=== PATIENT | male | born 1990 | race Caucasian/White ===

== ENCOUNTER 2018-07-31 02:21 | Emergency (ER) | payer SELFPAY ==
[~2018-07-31] VITALS: Wt 84.4 kg
--- NOTE | 2018-07-31 03:14 | ERD ---
ER Documentation Chief Complaint Chief Complaint SINUS CONGESTION, ITCHING IN BACK OF THROAT HPI 28-year-old male, presents the emergency department, complaining of frontal headache, associated with runny nose, nasal congestion and itchy throat. The patient denies fevers, no chills, no shortness of breath, no rashes. No medications taken at this time for the symptoms ROS All systems reviewed and are negative except as per history of present illness. Medications Home Meds Active Scripts Cetirizine Hcl* (Zyrtec*) 10 Mg Capsule, 10 MG PO DAILY, #30 TAB.CHEW Prov:VIKTORIYA MARTINEZ MD 07/31/18 Prednisone* (Prednisone*) 20 Mg Tab, 40 MG PO DAILY for 5 Days, TAB Prov:VIKTORIYA MARTINEZ MD 07/31/18 Fluticasone Propionate* (Fluticasone Propionate* Nasal) 50 Mcg/[place] - 16 Gm [place].susp, 1 SPRAY NASAL BID, #1 BOTTLE TO EACH NOSTRIL Prov:VIKTORIYA MARTINEZ MD 07/31/18 PMhx/Soc Medical and Surgical Hx: pt denies Medical Hx, pt denies Surgical Hx Hx Alcohol Use: No Hx Substance Use: No Hx Tobacco Use: No Smoking Status: Never smoker FmHx Family History: No diabetes, No coronary disease Physical Exam Vitals Vital Signs Date Temp Pulse Resp B/P (MAP) Pulse Ox O2 O2 Flow FiO2 Time Delivery Rate 07/31/18 98.4 78 16 132/84 99 Room Air 04:48 (100) 07/31/18 97.1 68 18 148/88 100 02:27 (108) Physical Exam Patient alert, oriented, vital signs stable. HEAD: Normocephalic, atraumatic. EYES: PERRLA, EOMI, Sclera and conjunctiva appear normal. NOSE: Bulging nasal mucosa with clear rhinorrhea EARS: Canals clear, tympanic membranes WNL. MOUTH: normal lips and tongue, no oral lesions. THROAT: Erythematous oropharynx, no tonsillar exudates. NECK: Supple, No lymphadenopathy. Full ROM without pain or tenderness. HEART: RRR, no rubs, murmurs, clicks or gallops. LUNGS: Clear to auscultation. ABDOMEN: Soft, non-tender without masses or hepatosplenomegaly. EXTREMITIES: No edema bilaterally. BACK: Full ROM, no deformity, normal back exam NEURO: Cranial nerves grossly intact, no motor or sensory deficit SKIN: No rashes, no petechia. Procedures/MDM Vital signs stable, differential diagnosis include but not limited to: Upper versus lower respiratory infection, bacterial/viral/fungal etiology. Asthma, pneumonitis, allergies, less likely meningitis. Low suspicion for acute systemic infection. Physical examination and clinical presentation consistent most likely with acute allergic rhinitis sinusitis. During the ED course the patient remained stable, no new complaints. Treatment options and clinical impression discussed with the patient who agrees with management. The patient is stable to be treated outpatient and will be dis charged home. Antibiotics not indicated at this time. some side effects of prescribed medications (headache, rash, nausea, vomiting, diarrhea, hypertension, interactions with other medications) were reviewed. The patient was instructed to follow up with the primary care provider in the next 48h. If symptoms persist, worsen or new symptoms develop, then patient should return to the ED immediately. Disclaimer: Inadvertent spelling and grammatical errors are likely due to EHR/dictation software use and do not reflect on the overall quality of patient care. Also, please note that the electronic time recorded on this note does not necessarily reflect the actual time of the patient encounter. Departure Diagnosis: Primary Impression: Allergic rhinitis Condition: Stable Additional Instructions: Thank you very much for allowing us to participate in your care. Your health and safety is our top priority at [facility]. Call your primary care doctor TOMORROW for an appointment during the next 2-4 days and bring all the information and medications prescribed. Have prescriptions filled and follow precisely the directions on the label. If the symptoms get worse and your provider is unavailable, return to the Emergency Department immediately. VIKTORIYA MARTINEZ MD Jul 31, 2018 03:14
[2018-07-31] MEDS ORDERED: FLUT16SP17 NASAL (03:45)
[2018-07-31] MEDS ORDERED: PRED20TA PO (03:45)
[2018-07-31] MEDS ORDERED: CETI10CA PO (03:45)
[2018-07-31 04:48] VITALS: BP 132/84; PULSE 78; RESP 16
== END 2018-07-31 04:49 | disposition home or self-care (01) ==
LOC: FTE 02:21
DX: J30.9 Allergic rhinitis, unspecified (principal)
CPT/HCPCS: 99283